=== PATIENT | male | born 1955 | race Caucasian/White ===

== ENCOUNTER 2016-12-25 07:11 | Emergency (ER) | payer OTHER ==
[2016-12-25] MEDS ORDERED: 0.9 % SODIUM CHLORIDE 1,000 ML BAG IV ONE (07:19)
--- NOTE | 2016-12-25 07:25 | Emergency Department Record ---
History of Present Illness - General Chief Complaint: Abdominal Pain Stated Complaint: ABD PAIN Time Seen by Provider: 12/25/16 07:19 Source: Patient Mode of Arrival: Ambulatory Limitations: No limitations - History of Present Illness Initial Comments: 61 yo male presents with abdominal pain, nausea, and vomiting. He has had mild pain for a couple days. Today he developed some nausea and vomited. No fever. He reports a history of hernia repair in the last year. He has noticed a bulge in the right lower abdomen this morning after coughing hard. He is urinating well. No diarrhea. Pain is mild. Prior surgery was at [facility] with Dr Lindsey. PETE Complaint: Abdominal pain Onset/Timin -: Days(s) (2) Location: RLQ Radiation: None Migration to: No migration Severity: Mild Quality: Aching Consistency: Constant Improves With: Nothing Worsens With: Nothing Associated Symptoms: Nausea, Vomiting - Related Data Home Medications Medication Instructions Recorded Confirmed Last Taken No Home Med [NO HOME MEDS] 12/25/16 12/25/16 Unknown Allergies Allergy/AdvReac Type Severity Reaction Status Date / Time No Known Drug Allergies Allergy Verified 12/25/16 07:19 Travel Screening - Travel/Exposure Within Last 30 Days Have you traveled within the last 30 days?: No - Travel/Exposure Within Last Year Have you traveled outside the [place] in the last year?: No - Additonal Travel Details Have you been exposed to anyone with a communicable illness?: No - Travel Symptoms Symptom Screening: None Review of Systems Constitutional: Denies: Chills, Fever, Weakness Eyes: Denies: Eye discharge ENT: Denies: Congestion, Throat pain Respiratory: Denies: Cough, Dyspnea, Hemoptysis Cardiovascular: Denies: Chest pain, Syncope Endocrine: Denies: Fatigue Gastrointestinal: Reports: Abdominal pain, Nausea, Vomiting. Denies: Diarrhea Genitourinary: Denies: Dysuria, Frequency Musculoskeletal: Denies: Arthralgia, Back pain, Myalgia, Neck pain Skin: Denies: Bruising, Change in color, Rash Neurological: Denies: Headache Psychiatric: Denies: Anxiety Hematological/Lymphatic: Denies: Blood Clots, Easy bleeding, Easy bruising, Swollen glands Past Medical History - SOCIAL HISTORY Smoking Status: Never smoker Alcohol Use: None Drug Use: None - RESPIRATORY Hx Respiratory Disorders: No - CARDIOVASCULAR Hx Cardio Disorders: No - NEURO Hx Neuro Disorders: No - GI Hx GI Disorders: Yes Hx Hiatal Hernia: Yes - Hx Genitourinary Disorders: No - ENDOCRINE Hx Endocrine Disorders: No - MUSCULOSKELETAL Hx Musculoskeletal Disorders: Yes - PSYCH Hx Psych Problems: No - HEMATOLOGY/ONCOLOGY Hx Hematology/Oncology Disorders: No Family Medical History Any Significant Family History?: Yes Hx Diabetes: Father, Mother Hx HTN: Mother Physical Exam - General General Appearance: Alert, Oriented x3, Cooperative, No acute distress Limitations: No limitations - Head Head exam: Normal inspection - Eye Eye exam: Normal appearance. negative: Conjunctival injection, Periorbital swelling - ENT ENT exam: Normal exam, Mucous membranes moist Ear exam: Normal external inspection Nasal Exam: Normal inspection Mouth exam: Normal external inspection - Neck Neck exam: Normal inspection, Full ROM. negative: Tenderness - Respiratory Respiratory exam: Normal lung sounds bilaterally. negative: Respiratory distress - Cardiovascular Cardiovascular Exam: Regular rate, Normal rhythm, Normal heart sounds - GI/Abdominal GI/Abdominal exam: Soft, Hernia (Right inguinal, soft, easily reducible). negative: Guarding, Hypoactive bowel sounds, Tenderness - Rectal Rectal exam: Deferred - exam: Normal inspection, Other (no hernia or swelling). negative: Scrotal swelling, Testicular tenderness, Urethral discharge - Extremities Extremities exam: Normal inspection, Full ROM, Normal capillary refill. negative: Tenderness - Back Back exam: Reports: Normal inspection, Full ROM. Denies: Muscle spasm, Rash noted, Tenderness - Neurological Neurological exam: Alert, Normal gait, Oriented X3 - Psychiatric Psychiatric exam: Normal affect, Normal mood. negative: Agitated, Anxious - Skin Skin exam: Dry, Intact, Normal color, Warm Course Vital Signs 12/25/16 07:16 Temperature 97.5 F L Pulse Rate 87 Respiratory 20 Rate Blood Pressure 157/97 Pulse Ox 97 - Reevaluation(s) Reevaluation #1: 12/25/16 07:24 The patient was seen and examined On examination he has a right inguinal hernia The hernia was easily reduced. The patient reports improved symptoms immediately. Reevaluation #2: EMR reviewed 12/2015 CT of the abdomen noted a very large right inguinal hernia. EMR noted this hernia has been present for many years. 12/25/16 07:28 12/25/16 07:49 The patient is doing very well. No pain or nausea. Recheck no hernia on examination. Tolerating contrast. 12/25/16 07:50 [facility] reviewed. 04/05/16 Indirect hernia repair, 09/2016 Seroma with capsule removal right scrotum Reevaluation #3: The labs were reviewed No acute changes of the CBC, CMP,Lipase, Lactic Acid No infection on UA 12/25/16 08:37 Reevaluation #4: I MEGHNA Catalan He accepts the patient for transfer to [facility] where is prior surgery was performed 12/25/16 09:56 12/25/16 10:45 Awaiting for [facility] bed placement Patient is comfortable 12/25/16 11:44 [facility] again contacted for update The abdomen is very soft The hernia will reduce. Reevaluation #5: The patient was assigned a bed He continues to do well 12/25/16 13:43 Medical Decision Making - Management Options MDM Management: Additional Work-up Planned (e.g. ADM/Transfer/OP Study) - Data Complexity MDM Data: Labs Ordered and/or Reviewed, X-Ray Ordered and/or Reviewed, Independent Visualization of Image, Tracing, or Specimen, Discussion of Test Results With Performing Physician, Decision to Obtain Old Record, Review and Summary of Old Record Discussed - Lab Data Result diagrams: 12/25/16 07:30 12/25/16 07:30 Disposition Disposition: Transfer Clinical Impression: Hernia, Incarcerated right inguinal hernia Disposition: Acute Care Hospital Transfer Return To Work/School Note Provided: No Transfer To: [facility] Reason For Transfer: Incarcerated hernia Accepting Physician: Hossein Time Discussed w/Accepting Physician: 09:54 Condition: (1) Good Forms: Patient Portal Access Time of Disposition: 09:54 Quality - Quality Measures Quality Measures: N/A - Blood Pressure Screening View Details: Yes Blood Pressure Classification: Hypertensive Reading Systolic Measurement: 157 Diastolic Measurement: 97 Screening for High Blood Pressure: < Normal BP, F/U Not Required > [G8783] Normal BP Follow-up Interventions: No follow-up required
[2016-12-25 07:42] LABS: BASO % 0.3 % (0-6); EOS % 3.2 % (0-6); GRAN % 67.7 % (47-80); HEMATOCRIT 43.8 % (42.0-52.0); HEMOGLOBIN 14.5 gm/dl (14.0-18.0); LYMPH % 15.5 % (16-45); MEAN CELL VOLUME 90.7 fl (81-97); MEAN CORPUSCULAR HGB CONC 33.1 g/dl (32-36); MEAN PLATELET VOLUME 9.6 fl (7.4-10.4); MONO % 13.3 % (0-9); PLATELET COUNT 207 K/uL (130-400); RED BLOOD COUNT 4.83 M/uL (4.40-5.70); WHITE BLOOD COUNT W/O DIFF 3.8 K/uL (4.2-12.2)
[2016-12-25 07:43] LABS: URINE APPEARANCE SL CLOUDY; URINE BILIRUBIN NEGATIVE (NEGATIVE); URINE BLOOD TRACE-I (NEGATIVE); URINE COLOR YELLOW; URINE GLUCOSE (UA) NEGATIVE (NEGATIVE); URINE KETONE NEGATIVE (NEGATIVE); URINE LEUKOCYTE ESTERASE NEGATIVE (NEGATIVE); URINE NITRITE NEGATIVE (NEGATIVE); URINE PROTEIN TRACE (NEGATIVE); URINE UROBILINOGEN 0.2 E.U./dL (0.20 - 1.00)
[2016-12-25 07:50] LABS: URINE AMORPHOUS SEDIMENT 1+; URINE BACTERIA NONE SEEN; URINE EPITHELIAL CELLS NONE SEEN (FEW); URINE RBC 0 - 2 (NONE SEEN); URINE WBC NONE SEEN (0-2/hpf)
[2016-12-25 07:56] LABS: ANION GAP 10.3 (7-16); BLOOD UREA NITROGEN 16 mg/dL (9-20); CARBON DIOXIDE 25.7 mmol/L (22-30); CREATININE 0.6 mg/dL (0.66-1.25); EST GLOMERULAR FILTRATION RATE > 60 ml/min; GLUCOSE,RANDOM 115 mg/dL (70-110); LIPASE 84 U/L (23-300)
[2016-12-25] MEDS ORDERED: 0.9 % SODIUM CHLORIDE 1000ML 1,000 ML IV ONE (09:55)
--- NOTE | 2016-12-25 09:56 | CT SCAN REPORT ---
EXAM: CT OF THE ABDOMEN AND PELVIS WITH CONTRAST HISTORY: ABDOMINAL PAIN. TECHNIQUE: Sequential axial images were obtained from the diaphragms through the ischiorectal fossa after intravenous and oral administration of 100 ml of Omnipaque 300 contrast material. Comparison: 04/23/16. FINDINGS: The visualized lung bases appear normal. There is a small sliding type hiatal hernia. The liver, gallbladder, pancreas, and spleen appear normal. The adrenal glands appear normal. There are benign appearing cysts in both kidneys. There is a nonobstructing calculus in the right kidney. The urinary bladder appears normal. There is prostate gland hyperplasia. There is an incarcerated right inguinal hernia containing small bowel. There is degenerative change of the lumbar spine. IMPRESSION: 1. INCARCERATED RIGHT INGUINAL HERNIA CONTAINING SMALL BOWEL. 2. BENIGN APPEARING CYSTS IN BOTH KIDNEYS. 3. SMALL SLIDING TYPE HIATAL HERNIA. 4. NOT MENTIONED ABOVE IS A SUBCUTANEOUS FAT NODULE IN THE LEFT LOWER POSTERIOR CHEST. CLINICAL CORRELATION IS RECOMMENDED. THIS HAS INCREASED IN SIZE WHEN COMPARED TO A PRIOR EXAM DATED 04/23/16. THIS CURRENTLY MEASURES 2.1 CM. THIS PREVIOUSLY MEASURED 1.5 CM. JOB NUMBER: [id number] [facility]
== END 2016-12-25 14:00 | disposition short-term general hospital (02) ==
LOC: ER 07:11
DX: K40.30 Unilateral inguinal hernia, with obstruction, without gangrene, not specified as recurrent (principal); R11.2 Nausea with vomiting, unspecified
CPT/HCPCS: 99285 ×2; 96360; 96361; 83605; 83690; 85025; 80048; 81001; 74177; Q9967; J7030

== ENCOUNTER 2017-04-18 23:27 | Emergency (ER) | payer SELFPAY ==
[2017-04-18 23:39] LABS: URINE APPEARANCE CLEAR; URINE BILIRUBIN NEGATIVE (NEGATIVE); URINE BLOOD TRACE-I (NEGATIVE); URINE COLOR YELLOW; URINE GLUCOSE (UA) NEGATIVE (NEGATIVE); URINE KETONE NEGATIVE (NEGATIVE); URINE LEUKOCYTE ESTERASE NEGATIVE (NEGATIVE); URINE NITRITE NEGATIVE (NEGATIVE); URINE PROTEIN NEGATIVE (NEGATIVE); URINE UROBILINOGEN 0.2 E.U./dL (0.20 - 1.00)
[2017-04-18 23:41] LABS: URINE BACTERIA NONE SEEN; URINE EPITHELIAL CELLS 0 - 2 (FEW); URINE RBC 0 - 2 (NONE SEEN); URINE WBC 0 - 2 (0-2/hpf)
[2017-04-18] MEDS ORDERED: ONDANSETRON HCL IV 4 MG/2 ML VIAL IVP ONE (23:44)
[2017-04-18] MEDS ORDERED: HYOSCYAMINE SULFATE ODT 0.125 MG TAB.SUBL SL ONE (23:44)
[2017-04-18] MEDS ORDERED: 0.9 % SODIUM CHLORIDE 1000ML 1,000 ML IV SCH (23:45)
--- NOTE | 2017-04-18 23:48 | Emergency Department Record ---
History of Present Illness - General Chief complaint: Nausea, Vomiting, Diarrhea Stated complaint: NAUSEA/VOMITING/DIARRHEA Time Seen by Provider: 04/18/17 23:44 Source: Patient Mode of Arrival: Ambulatory Limitations: No limitations - History of Present Illness Initial comments: 61 yo male presents to ED with a CC of nausea, vomiting, and loose stools x 5 that began approximately 6 hours ago. Patient reports that his symptoms began after eating a "hyungy man", denies fevers, chills, or abdominal pain symptoms. Patient denies urinary symptoms as well. Patient denies any ill contacts at home and denies health problems at his baseline. MD complaint: Diarrhea, Nausea, Vomiting Onset/Timin -: Hour(s) Associated Abdominal Pain: No Severity: Mild Improves with: None Worsens with: None Associated Symptoms: Denies other symptoms - Related Data Previous Rx's Medication Instructions Recorded Hyoscyamine Sulfate [Levsin-Sl] 0.25 mg SL Q8H PRN #20 tab.subl 04/18/17 Ondansetron [Zofran Odt] 4 mg PO Q6H PRN #20 tab.rapdis 04/18/17 Allergies Allergy/AdvReac Type Severity Reaction Status Date / Time No Known Drug Allergies Allergy Verified 12/25/16 07:19 Travel Screening - Travel/Exposure Within Last 30 Days Have you traveled within the last 30 days?: No - Travel/Exposure Within Last Year Have you traveled outside the [place] in the last year?: No - Additonal Travel Details Have you been exposed to anyone with a communicable illness?: No - Travel Symptoms Symptom Screening: None Review of Systems Constitutional: Denies: Chills, Fever, Malaise, Night sweats Eyes: Denies: Eye discharge, Eye pain ENT: Denies: Congestion, Ear pain, Epistaxis Respiratory: Denies: Cough, Dyspnea Cardiovascular: Denies: Chest pain, Dyspnea on exertion Endocrine: Denies: Fatigue, Heat or cold intolerance Gastrointestinal: Reports: Diarrhea, Nausea, Vomiting. Denies: Abdominal pain Genitourinary: Denies: Incontinence, Retention Musculoskeletal: Denies: Arthralgia, Back pain, Gout, Joint swelling Skin: Denies: Bruising, Change in color Neurological: Denies: Abnormal gait, Confusion, Headache Psychiatric: Denies: Anxiety Hematological/Lymphatic: Denies: Anemia, Blood Clots Past Medical History - SOCIAL HISTORY Smoking Status: Never smoker Alcohol Use: None Drug Use: None - RESPIRATORY Hx Respiratory Disorders: No - CARDIOVASCULAR Hx Cardio Disorders: No - NEURO Hx Neuro Disorders: No - GI Hx GI Disorders: Yes Hx Hiatal Hernia: Yes - Hx Genitourinary Disorders: No - ENDOCRINE Hx Endocrine Disorders: No - MUSCULOSKELETAL Hx Musculoskeletal Disorders: Yes - PSYCH Hx Psych Problems: No - HEMATOLOGY/ONCOLOGY Hx Hematology/Oncology Disorders: No Family Medical History Any Significant Family History?: Yes Hx Diabetes: Father, Mother Physical Exam - General General Appearance: Alert, Oriented x3, Cooperative, Mild distress Limitations: No limitations - Head Head exam: Atraumatic, Normocephalic, Normal inspection Head exam detail: negative: Abrasion, Contusion, Wolff's sign, General tenderness, Hematoma, Laceration - Eye Eye exam: Normal appearance. negative: Conjunctival injection, Periorbital swelling, Periorbital tenderness, Scleral icterus - ENT Ear exam: negative: Auricular hematoma, Auricular trauma Nasal Exam: negative: Active bleeding, Discharge, Dried blood, Foreign body Mouth exam: negative: Drooling, Laceration, Muffled voice, Tongue elevation - Neck Neck exam: Normal inspection. negative: Meningismus, Tenderness - Respiratory Respiratory exam: Normal lung sounds bilaterally. negative: Respiratory distress, Rhonchi, Stridor, Wheezes - Cardiovascular Cardiovascular Exam: Regular rate, Normal rhythm, Normal heart sounds - GI/Abdominal GI/Abdominal exam: Soft. negative: Rebound, Rigid, Tenderness - Rectal Rectal exam: Deferred - exam: Deferred - Extremities Extremities exam: Normal inspection. negative: Calf tenderness, Pedal edema, Tenderness - Back Back exam: Denies: CVA tenderness (R), CVA tenderness (L) - Neurological Neurological exam: Alert, Normal gait, Oriented X3 - Psychiatric Psychiatric exam: Normal affect, Normal mood - Skin Skin exam: Normal color. negative: Abrasion Type of lesion: negative: abrasion Course Vital Signs 04/18/17 23:36 Temperature 97.9 F Pulse Rate 89 Respiratory 20 Rate Blood Pressure 159/93 Pulse Ox 99 - Reevaluation(s) Reevaluation #1: 04/19/17 00:19 Labs reviewed and are grossly unremarkable for an acute process. Reevaluation #2: 04/19/17 01:07 Patient reassessed and reports that he is feeling much better, ambulated to the bathroom with steady gait. Patient appears stable for discharge at this time. Medical Decision Making - Lab Data Result diagrams: 04/18/17 23:50 04/18/17 23:50 Lab Results 04/18/17 Range/Units 23:40 Urine Color Yellow Urine Appearance Clear Urine pH 6.5 (5.0-8.0) Ur Specific Thrall 1.025 (1.002-1.030) Urine Protein Negative (NEGATIVE) Urine Glucose (UA) Negative (NEGATIVE) Urine Ketones Negative (NEGATIVE) Urine Blood Trace-i (NEGATIVE) Urine Nitrite Negative (NEGATIVE) Urine Bilirubin Negative (NEGATIVE) Urine Urobilinogen 0.2 (0.20 - 1.00) E.U./dL Ur Leukocyte Esterase Negative (NEGATIVE) Urine RBC 0 - 2 (NONE SEEN) Urine WBC 0 - 2 (0-2/hpf) Ur Epithelial Cells 0 - 2 (FEW) Urine Bacteria None seen Disposition Disposition: Discharge Clinical Impression: Nausea vomiting and diarrhea Disposition: Home, Self-Care Condition: (2) Stable Instructions: Acute Nausea and Vomiting (ED) Additional Instructions: Return to ED if your symptoms worsen or if you have any concerns. Zofran and Levsin as directed. Follow-up with your family doctor in 3-5 days as directed. Prescriptions: Hyoscyamine Sulfate [Levsin-Sl] 0.25 mg SL Q8H PRN #20 tab.subl PRN Reason: Abdominal Pain Ondansetron [Zofran Odt] 4 mg PO Q6H PRN #20 tab.rapdis PRN Reason: Nausea/Vomiting Forms: Patient Portal Access Time of Disposition: 23:54 Quality - Quality Measures Quality Measures: N/A - Blood Pressure Screening Does Patient Have Any of the Following: No Blood Pressure Classification: Hypertensive Reading Systolic Measurement: 159 Diastolic Measurement: 93 Screening for High Blood Pressure: < First Hypertensive BP, F/U Documented > [ G8950] First Hypertensive Follow-up Interventions: Referral to alternative/primary care provider.
[2017-04-18 23:58] LABS: BASO % 0.3 % (0-6); EOS % 2.5 % (0-6); GRAN % 76.3 % (47-80); HEMATOCRIT 42.1 % (42.0-52.0); HEMOGLOBIN 13.8 gm/dl (14.0-18.0); LYMPH % 13.4 % (16-45); MEAN CELL VOLUME 91.5 fl (81-97); MEAN CORPUSCULAR HGB CONC 32.8 g/dl (32-36); MEAN PLATELET VOLUME 9.5 fl (7.4-10.4); MONO % 7.5 % (0-9); PLATELET COUNT 249 K/uL (130-400); RED CELL DISTRIBUTION WIDTH 13.1 % (11.5-14.5); WHITE BLOOD COUNT W/O DIFF 7.2 K/uL (4.2-12.2)
[2017-04-19 00:13] LABS: BLOOD UREA NITROGEN 22 mg/dL (6-20); CREATININE 0.8 mg/dL (0.7-1.2); EST GLOMERULAR FILTRATION RATE > 60 mL/min; GLUCOSE,RANDOM 127 mg/dL (74-109); TOTAL PROTEIN 7.2 g/dL (6.6-8.7)
[2017-04-19 00:16] LABS: ALB/GLOB RATIO 1.2 (1.1-1.8); ALBUMIN 3.9 g/dL (4.0-5.0); ALKALINE PHOSPHATASE 62 U/L (40-129); ALT/SGPT 17 U/L (<41); AST/SGOT 18 U/L (10.0-50.0); LIPASE 34 U/L (13-60)
== END 2017-04-19 02:04 | disposition home or self-care (01) ==
LOC: ER 23:27
DX: R11.2 Nausea with vomiting, unspecified (principal); R19.7 Diarrhea, unspecified
CPT/HCPCS: 99284 ×2; 96374; 83690; 85025; 80053; 81001; J1980; J2405; J7030

== ENCOUNTER 2017-04-22 13:42 | Emergency (ER) | payer SELFPAY ==
--- NOTE | 2017-04-22 14:22 | Emergency Department Record ---
History of Present Illness - General Chief Complaint: Abdominal Pain Stated Complaint: ABD PAIN, WALLACE,COUGH Time Seen by Provider: 04/22/17 14:21 Source: Patient Mode of Arrival: Ambulatory Limitations: No limitations - History of Present Illness Initial Comments: The patient is here due to not feeling well for 4 days. He was here in the ER 4 days ago with vomiting and diarrhea. That has improved but he is still mildly nauseated at times and is still coughing. He denies any AP, CP, SOB, vomiting, diarrhea, fever, chills, WALLACE, or ST. There is no sputum with the cough. MD Complaint: Other Onset/Timin -: Days(s) Associated Symptoms: Nausea - Related Data Previous Rx's Medication Instructions Recorded Hyoscyamine Sulfate [Levsin-Sl] 0.25 mg SL Q8H PRN #20 tab.subl 04/18/17 Ondansetron [Zofran Odt] 4 mg PO Q6H PRN #20 tab.rapdis 04/18/17 Ondansetron [Zofran Odt] 4 mg SL .Q4-6H PRN #12 tab.rapdis 04/22/17 Sucralfate [Carafate] 1 gm PO QID #28 tablet 04/22/17 Allergies Allergy/AdvReac Type Severity Reaction Status Date / Time No Known Drug Allergies Allergy Verified 04/22/17 14:01 Travel Screening - Travel/Exposure Within Last 30 Days Have you traveled within the last 30 days?: No Review of Systems Constitutional: Reports: Malaise. Denies: Chills, Fever Eyes: Denies: Eye discharge ENT: Denies: Congestion Respiratory: Reports: Cough. Denies: Dyspnea Past Medical History - SOCIAL HISTORY Smoking Status: Never smoker Alcohol Use: None Drug Use: None - RESPIRATORY Hx Respiratory Disorders: No - CARDIOVASCULAR Hx Cardio Disorders: No - NEURO Hx Neuro Disorders: No - GI Hx GI Disorders: Yes Hx Hiatal Hernia: Yes - Hx Genitourinary Disorders: No - ENDOCRINE Hx Endocrine Disorders: No - MUSCULOSKELETAL Hx Musculoskeletal Disorders: Yes - PSYCH Hx Psych Problems: No - HEMATOLOGY/ONCOLOGY Hx Hematology/Oncology Disorders: No Family Medical History Any Significant Family History?: Yes Hx Diabetes: Father, Mother Physical Exam - General General Appearance: Alert, Oriented x3, Cooperative, No acute distress - Head Head exam: Atraumatic, Normocephalic, Normal inspection - Eye Eye exam: Normal appearance, PERRL, EOMI - ENT Throat exam: Normal inspection. negative: Tonsillar erythema, Tonsillar exudate - Neck Neck exam: Normal inspection, Full ROM. negative: Tenderness - Respiratory Respiratory exam: Normal lung sounds bilaterally. negative: Respiratory distress - Cardiovascular Cardiovascular Exam: Regular rate, Normal rhythm, Normal heart sounds - GI/Abdominal GI/Abdominal exam: Soft, Normal bowel sounds. negative: Distended, Rebound, Rigid, Tenderness - Extremities Extremities exam: Normal inspection, Full ROM, Normal capillary refill. negative: Tenderness - Neurological Neurological exam: Alert, Normal gait. negative: Abnormal gait, Motor sensory deficit Course Vital Signs 04/22/17 13:57 Temperature 98.2 F Pulse Rate 101 H Respiratory 20 Rate Blood Pressure 156/96 Pulse Ox 97 - Reevaluation(s) Reevaluation #1: The patient is doing very well. I explained to him that his CXR is normal. He is to be off work today and see his PCP next week if not better. 04/22/17 15:11 Medical Decision Making - Data Complexity MDM Data: X-Ray Ordered and/or Reviewed - Radiology Data Radiology results: Report reviewed (CXR: Neg.) Disposition Disposition: Discharge Clinical Impression: Nausea Disposition: Home, Self-Care Condition: (1) Good Instructions: Acute Nausea and Vomiting (ED) Additional Instructions: Please see your PCP next week if not better. Take the Zofran for nausea and use the Carafate as directed. Please return to the ER for any worsening cough, nausea, or any pain or fever. Prescriptions: Ondansetron [Zofran Odt] 4 mg SL .Q4-6H PRN #12 tab.rapdis PRN Reason: Nausea Sucralfate [Carafate] 1 gm PO QID #28 tablet Forms: Patient Portal Access Time of Disposition: 15:13 Quality - Quality Measures Quality Measures: N/A - Blood Pressure Screening View Details: Yes Does Patient Have Any of the Following: No Blood Pressure Classification: Hypertensive Reading Systolic Measurement: 156 Diastolic Measurement: 96 Screening for High Blood Pressure: < Pre-Hypertensive BP, F/U Documented > [ G8950] Pre-Hypertensive Follow-up Interventions: Referral to alternative/primary care provider.
--- NOTE | 2017-04-23 07:27 | RADIOLOGY REPORT ---
EXAM: CHEST, TWO VIEWS HISTORY: FEVER. TECHNIQUE: Frontal and lateral views of the chest were performed. FINDINGS: The heart size is normal. No pulmonary vascular congestion. No infiltrate or pleural effusion. The osseous structures are normal. IMPRESSION: NO ACUTE DISEASE PROCESS. JOB NUMBER: [id number] [facility]
== END 2017-04-22 15:26 | disposition home or self-care (01) ==
LOC: ER 13:42
DX: R11.2 Nausea with vomiting, unspecified (principal); R19.7 Diarrhea, unspecified; R51 Headache; R05 Cough
CPT/HCPCS: 71020

== ENCOUNTER 2019-07-12 19:02 | Emergency (ER) | payer OTHER ==
--- NOTE | 2019-07-12 19:35 | Emergency Department Record ---
History of Present Illness - General Chief complaint: Burn/Smoke Inhalation Stated complaint: CHEMICAL LIMA/HANDS Time Seen by Provider: 07/12/19 19:22 Source: Patient, Family Mode of Arrival: Ambulatory Limitations: No limitations - History of Present Illness Initial comments: 63 yo male had some time of unknown chemical skin exposure about 2 months ago. Since then his hands bilaterally have been erythematous, scaly, and itches. He works at a local company in maintenance. No fevers. No pain. No pus or signs of overt infection. MD Complaint: Chemical exposure -: Month(s) (2) Type of Exposure: Chemical Smoke Inhalation: None Place: Unknown (Work) Location - Extremities: Left: Hand, Right: Hand - Related Data Previous Rx's Medication Instructions Recorded Hydrocortisone 60 gm TP BID #1 cream..g. 07/12/19 Methylprednisolone [Medrol Dose 4 mg PO DAILY #1 tab.ds.pk 07/12/19 Pack] Allergies Allergy/AdvReac Type Severity Reaction Status Date / Time No Known Drug Allergies Allergy Verified 04/22/17 14:01 Review of Systems Constitutional: Denies: Chills, Fever, Malaise, Weakness Eyes: Denies: Eye discharge ENT: Denies: Congestion, Throat pain Respiratory: Denies: Cough, Dyspnea Cardiovascular: Denies: Chest pain, Palpitations, Syncope Endocrine: Denies: Fatigue, Polydipsia, Polyuria Gastrointestinal: Denies: Abdominal pain, Diarrhea, Nausea, Vomiting Genitourinary: Denies: Dysuria, Frequency, Hematuria Musculoskeletal: Denies: Arthralgia, Joint swelling, Myalgia, Neck pain Skin: Reports: As per HPI, Change in color, Pruritus, Rash Neurological: Denies: Numbness, Tingling, Weakness Psychiatric: Denies: Anxiety Hematological/Lymphatic: Denies: Easy bleeding, Easy bruising Past Medical History - SOCIAL HISTORY Smoking Status: Never smoker Drug Use: None - RESPIRATORY Hx Respiratory Disorders: No - CARDIOVASCULAR Hx Cardio Disorders: No - NEURO Hx Neuro Disorders: No - GI Hx GI Disorders: Yes Hx Hiatal Hernia: Yes - Hx Genitourinary Disorders: No - ENDOCRINE Hx Endocrine Disorders: No - MUSCULOSKELETAL Hx Musculoskeletal Disorders: Yes - PSYCH Hx Psych Problems: No - HEMATOLOGY/ONCOLOGY Hx Hematology/Oncology Disorders: No Family Medical History Hx Diabetes: Father, Mother Physical Exam - General General Appearance: Alert, Oriented x3, Cooperative, No acute distress Limitations: No limitations - Head Head exam: Atraumatic, Normal inspection - Eye Eye exam: Normal appearance. negative: Conjunctival injection - ENT ENT exam: Normal exam, Mucous membranes moist Ear exam: Normal external inspection Nasal Exam: Normal inspection Mouth exam: Normal external inspection - Neck Neck exam: Normal inspection - Respiratory Respiratory exam: Normal lung sounds bilaterally - Cardiovascular Cardiovascular Exam: Regular rate, Normal rhythm, Normal heart sounds - Rectal Rectal exam: Deferred - exam: Deferred - Extremities Extremities exam: Full ROM, Normal capillary refill. negative: Normal inspection, Tenderness Image of Hand: 1 - erythema, scaling, minimal swelling, full ROM, no abnormal warmth, no pus, no overt signs of infection - Neurological Neurological exam: Alert, Oriented X3 - Skin Skin exam: Erythema, Rash, Other (scaling). negative: Mottled, Vesicles, Warm Type of lesion: negative: Abscess Course Vital Signs 07/12/19 19:20 Temperature 97.7 F Pulse Rate [ 91 H Pulse Ox Probe] Respiratory 20 Rate Blood Pressure 144/80 [Left Arm] Pulse Ox 98 - Reevaluation(s) Reevaluation #1: 07/12/19 19:51 The examination is not consistent with a burn It is most consistent with a contact dermatitis We discussed home care and follow up Disposition Disposition: Discharge Clinical Impression: Dermatitis Disposition: Home, Self-Care Condition: (1) Good Instructions: Contact Dermatitis (ED), Dyshidrotic Eczema (ED) Additional Instructions: Wash your hands with a mild hypo-allergenic soap Use the cream twice daily Take the Medrol as directed until gone Call tomorrow for a new family doctor. Prescriptions: Hydrocortisone 60 gm TP BID #1 cream..g. Methylprednisolone [Medrol Dose Pack] 4 mg PO DAILY #1 tab.ds.pk Forms: Patient Portal Access Time of Disposition: 19:38 Quality - Quality Measures Quality Measures: N/A - Blood Pressure Screening Does Patient Have Any of the Following: No Blood Pressure Classification: Pre-Hypertensive BP Reading Systolic Measurement: 144 Diastolic Measurement: 80 Screening for High Blood Pressure: < Pre-Hypertensive BP, F/U Documented > [G8950] Pre-Hypertensive Follow-up Interventions: Referral to alternative/primary care provider.
== END 2019-07-12 19:55 | disposition home or self-care (01) ==
LOC: ER 19:02
DX: L25.9 Unspecified contact dermatitis, unspecified cause (principal)
CPT/HCPCS: 99283